=== PATIENT | male | born 1970 | race Caucasian/White ===

== ENCOUNTER 2019-12-11 16:11 | Emergency (ER) | payer MEDICAID ==
[~2019-12-11] VITALS: Ht 180.3 cm; Wt 109.1 kg
[2019-12-11 16:22] VITALS: BP 134/91
[2019-12-11] MEDS ORDERED: CEPH500C5 PO (16:51)
[2019-12-11] MEDS ORDERED: SULF1TAB49 PO (16:51)
== END 2019-12-11 17:05 | disposition home or self-care (01) ==
LOC: ER 16:12
DX: L03.115 Cellulitis of right lower limb (principal); Z79.899 Other long term (current) drug therapy
CPT/HCPCS: 99283